=== PATIENT | female | born 1980 | race Two or more races ===

== ENCOUNTER 2018-02-20 12:05 | Inpatient (IN) | payer BC, OTHER ==
[~2018-02-20] VITALS: Ht 165.1 cm; Wt 83.6 kg
[2018-02-20] MEDS ORDERED: ONDANSETRON HCL 4 MG/2 ML VIAL IV ONE (14:15)
[2018-02-20 14:41] LABS: Hematocrit 32.6 % (36.0-46.0); Hemoglobin 10.1 g/dL (12.2-16.2); Mean Corpuscular Hemoglobin 24.5 pg (28.0-32.0); Mean Corpuscular Hgb Conc. 30.9 g/dL (32.0-36.0); Mean Corpuscular Volume 79.2 fL (80.0-100.0); Platelet Count (auto) 220 10^3/uL (140-450); Red Blood Cells 4.11 10^6/uL (4.0-5.20); White Blood Cell 8.6 10^3/uL (4.4-10.8)
[2018-02-20 14:42] LABS: Red Cell Distribution Width 24.3 % (11.8-14.3)
[2018-02-20 14:43] LABS: Band Neutrophils % (manual) 0; Basophils % (manual) 0 (0.0-2.0); Blast Cells 0; Metamyelocytes % 0; Myelocytes % 0; Promyelocytes % 0; Reactive Lymphocytes 0
[2018-02-20] MEDS ORDERED: KETOROLAC TROMETH 30 MG/ML 1ML VIAL IV ONE (14:45)
[2018-02-20 14:53] LABS: Albumin 2.6 g/dL (3.4-5.0); BUN/Creatinine Ratio 14.3; Calcium 8.7 mg/dL (8.5-10.1); Potassium 3.6 mmol/L (3.5-5.1)
[2018-02-20 14:56] LABS: Bilirubin, Total 0.4 mg/dL (0.2-1.0); Total Protein 8.6 g/dL (6.4-8.2)
[2018-02-20 15:29] LABS: Urine Bacteria NONE SEEN /hpf (None Seen); Urine Blood Negative /uL (Negative); Urine Mucus FEW (None Seen); Urine Specific Gravity 1.022 (1.001-1.035); Urine WBC 6 /hpf (0 - 5)
[2018-02-20] MEDS ORDERED: VANCOMYCIN PER PHARMACY 0 MG IV SCH (15:30)
[2018-02-20] MEDS ORDERED: PIPERACILLIN-TAZOB 3.375GM 100 ML IV ONE (15:30)
[2018-02-20] MEDS ORDERED: ENOXAPARIN SOD 80 MG/0.8ML SYRINGE SC ONE (15:45)
[2018-02-20] MEDS ORDERED: cloNIDine HCL 0.1 MG TAB PO PRN (15:45)
[2018-02-20] MEDS ORDERED: TEMAZEPAM 15 MG CAP PO PRN (15:45)
[2018-02-20] MEDS ORDERED: NITROGLYCERIN 0.4 MG SL TAB SL PRN (15:45)
[2018-02-20] MEDS ORDERED: DOCUSATE SOD 100 MG CAP PO PRN (15:45)
[2018-02-20] MEDS ORDERED: ACETAMINOPHEN 325 MG TAB PO PRN (15:45)
[2018-02-20 16:01] LABS: INR 1.47 (0.9-1.15); Prothrombin Time 15.4 sec (9.27-12.13)
[2018-02-20] MEDS: SODIUM CHLORIDE 0.9% 1,000 ML IV SCH (16:10)
[2018-02-20 16:44] LABS: Eosinophils % (manual) 3 (0-7); Lymphocytes % (manual) 13 (10.0-50.0); Monocytes % (manual) 5 (0-12)
[2018-02-20] MEDS: VANCOMYCIN 1GM/250ML 250 ML IV SCH (17:06)
[2018-02-20] MEDS: Ensure Enlive Strawberry 8oz Bottle PO SCH (18:00)
[2018-02-20 19:11] LABS: % Iron Saturation 12.8 % (15-50)
[2018-02-20] MEDS: PIPERACILLIN-TAZOB 3.375GM 100 ML IV SCH (21:04)
[2018-02-20 21:18] LABS: Folate (Folic Acid) 11.91 ng/mL (5.38-24)
[2018-02-20] MEDS: HYDROcodone-ACET 5/325MG TAB PO PRN (21:34)
[2018-02-20] MEDS: LORazepam 0.5 MG TAB PO PRN (21:35)
[2018-02-20] MEDS: ENOXAPARIN SOD 80 MG/0.8ML SYRINGE SC SCH (21:35)
[2018-02-20 22:00] VITALS: BP 164/101
[2018-02-21] MEDS: PIPERACILLIN-TAZOB 3.375GM 100 ML IV SCH ×2 (02:39→10:17)
[2018-02-21] MEDS: HYDROcodone-ACET 5/325MG TAB PO PRN ×5 (02:52→18:45)
[2018-02-21 05:00] VITALS: BP 154/83
[2018-02-21] MEDS: VANCOMYCIN 1GM/250ML 250 ML IV SCH (05:10)
[2018-02-21 06:16] LABS: Basophils # (auto) 0 uL; Eosinophils # (auto) 0.2 uL; Eosinophils % (auto) 3.9 % (0.0-7.0); White Blood Cell 6.2 10^3/uL (4.4-10.8)
[2018-02-21 06:18] LABS: Basophils % (auto) 0.7 % (0.0-2.0); Hematocrit 27.2 % (36.0-46.0); Hemoglobin 8.8 g/dL (12.2-16.2); Lymphocytes # (auto) 0.5 uL; Lymphocytes % (auto) 8.6 % (10.0-50.0); Mean Corpuscular Hemoglobin 25.3 pg (28.0-32.0); Mean Corpuscular Hgb Conc. 32.4 g/dL (32.0-36.0); Mean Corpuscular Volume 78.1 fL (80.0-100.0); Monocytes # (auto) 0.5 uL; Neutrophils # (auto) 4.9 uL; Neutrophils % (auto) 78.8 % (37.0-80.0); Nucleated Red Blood Cells % 0.1 %; Platelet Count (auto) 176 10^3/uL (140-450); Red Blood Cells 3.48 10^6/uL (4.0-5.20)
[2018-02-21 06:25] LABS: Red Cell Distribution Width 23.9 % (11.8-14.3)
[2018-02-21 06:39] LABS: Albumin 2.2 g/dL (3.4-5.0); BUN/Creatinine Ratio 12.2; Bilirubin, Total 0.4 mg/dL (0.2-1.0); Calcium 8.2 mg/dL (8.5-10.1); Total Protein 7.2 g/dL (6.4-8.2)
[2018-02-21 06:49] LABS: Potassium 2.9 mmol/L (3.5-5.1)
[2018-02-21] MEDS: Ensure Enlive Strawberry 8oz Bottle PO SCH ×3 (08:00→18:00)
[2018-02-21] MEDS: SODIUM CHLORIDE 0.9% 1,000 ML IV SCH ×2 (08:17→21:07)
[2018-02-21] MEDS: HYDROmorphone HCL 2 MG/ML VL IV PRN ×5 (08:42→19:00)
[2018-02-21 09:00] VITALS: BP 129/87
[2018-02-21] MEDS: MULTIPLE VITAMIN TAB PO SCH (10:18)
[2018-02-21] MEDS: FLUCONAZOLE 100 MG TAB PO SCH (10:18)
[2018-02-21] MEDS: ENOXAPARIN SOD 80 MG/0.8ML SYRINGE SC SCH ×2 (10:18→21:06)
[2018-02-21] MEDS: SODIUM FERR GLUC 62.5MG/5ML 125 MG in SODIUM CHL 0.9% 100 ML IV SCH (12:00)
[2018-02-21 12:55] VITALS: BP 122/79
[2018-02-21] MEDS: KETOROLAC TROMETH 30 MG/ML 1ML VIAL IV PRN ×2 (15:30→21:06)
[2018-02-21 17:00] VITALS: BP 139/96
[2018-02-21] MEDS: ONDANSETRON HCL 4 MG/2 ML VIAL IV PRN (19:00)
[2018-02-21 22:00] VITALS: BP 123/73
[2018-02-22] MEDS: KETOROLAC TROMETH 30 MG/ML 1ML VIAL IV PRN ×3 (02:43→19:45)
[2018-02-22 05:00] VITALS: BP 137/90
[2018-02-22 06:21] LABS: Basophils # (auto) 0 uL; Lymphocytes # (auto) 0.5 uL; Monocytes # (auto) 0.7 uL; Neutrophils # (auto) 5.2 uL; White Blood Cell 6.8 10^3/uL (4.4-10.8)
[2018-02-22 06:25] LABS: Basophils % (auto) 0.5 % (0.0-2.0); Eosinophils # (auto) 0.3 uL; Hematocrit 28.2 % (36.0-46.0); Lymphocytes % (auto) 7.2 % (10.0-50.0); Mean Corpuscular Hemoglobin 25.1 pg (28.0-32.0); Mean Corpuscular Volume 78.6 fL (80.0-100.0); Monocytes % (auto) 10.6 % (0.0-12.0); Neutrophils % (auto) 76.7 % (37.0-80.0); Platelet Count (auto) 202 10^3/uL (140-450); Red Blood Cells 3.59 10^6/uL (4.0-5.20)
[2018-02-22 06:47] LABS: BUN/Creatinine Ratio 8.2; Calcium 8.3 mg/dL (8.5-10.1); Potassium 3.3 mmol/L (3.5-5.1)
[2018-02-22 06:49] LABS: Red Cell Distribution Width 23.9 % (11.8-14.3)
[2018-02-22] MEDS: Ensure Enlive Strawberry 8oz Bottle PO SCH ×3 (08:00→18:00)
[2018-02-22] MEDS: FLUCONAZOLE 100 MG TAB PO SCH (08:29)
[2018-02-22] MEDS: MULTIPLE VITAMIN TAB PO SCH (08:29)
[2018-02-22] MEDS: HYDROcodone-ACET 5/325MG TAB PO PRN ×3 (08:31→21:44)
[2018-02-22] MEDS: ENOXAPARIN SOD 80 MG/0.8ML SYRINGE SC SCH ×2 (08:31→21:44)
[2018-02-22 09:00] VITALS: BP 156/94
[2018-02-22] MEDS ORDERED: POTASSIUM CHL 20 Meq TABLET PO ONE (10:30)
[2018-02-22 13:00] VITALS: BP 136/84
[2018-02-22] MEDS: SODIUM FERR GLUC 62.5MG/5ML 125 MG in SODIUM CHL 0.9% 100 ML IV SCH (14:00)
[2018-02-22 17:00] VITALS: BP 140/91
[2018-02-22] MEDS: SODIUM CHLORIDE 0.9% 1,000 ML IV SCH (17:32)
[2018-02-22] MEDS: LORazepam 0.5 MG TAB PO PRN (21:44)
[2018-02-22 21:56] VITALS: BP 130/84
[2018-02-23 04:45] VITALS: BP 152/91
[2018-02-23] MEDS: HYDROcodone-ACET 5/325MG TAB PO PRN ×2 (06:14→16:43)
[2018-02-23] MEDS: LORazepam 0.5 MG TAB PO PRN ×2 (06:14→18:53)
[2018-02-23 07:54] VITALS: BP 144/89
[2018-02-23] MEDS: Ensure Enlive Strawberry 8oz Bottle PO SCH ×3 (08:00→18:00)
[2018-02-23] MEDS: ENOXAPARIN SOD 80 MG/0.8ML SYRINGE SC SCH ×2 (09:58→21:22)
[2018-02-23] MEDS: KETOROLAC TROMETH 30 MG/ML 1ML VIAL IV PRN ×3 (09:58→21:22)
[2018-02-23] MEDS: MULTIPLE VITAMIN TAB PO SCH (09:58)
[2018-02-23] MEDS: FLUCONAZOLE 100 MG TAB PO SCH (09:58)
[2018-02-23] MEDS: SODIUM CHLORIDE 0.9% 1,000 ML IV SCH (10:03)
[2018-02-23] MEDS: SODIUM FERR GLUC 62.5MG/5ML 125 MG in SODIUM CHL 0.9% 100 ML IV SCH (12:28)
[2018-02-23 12:45] VITALS: BP 147/89
[2018-02-23] MEDS ORDERED: POTASSIUM CHL 20 Meq TABLET PO ONE (13:45)
[2018-02-23] MEDS ORDERED: CEFT1INJ33 IV (15:10)
[2018-02-23] MEDS ORDERED: METR500T PO (15:10)
[2018-02-23] MEDS ORDERED: FLUC200T35 PO (15:10)
[2018-02-23] MEDS: SIMETHICONE 80 MG CHEWABLE TABLET PO PRN ×2 (16:43→21:22)
[2018-02-23 17:29] VITALS: BP 140/87
[2018-02-23] MEDS: ONDANSETRON HCL 4 MG/2 ML VIAL IV PRN (18:53)
[2018-02-23] MEDS: APIXABAN 5 MG TAB PO SCH (21:21)
[2018-02-23 22:00] VITALS: BP 155/90
[2018-02-24] MEDS: SODIUM CHLORIDE 0.9% 1,000 ML IV SCH (03:11)
[2018-02-24 05:00] VITALS: BP 157/96
[2018-02-24] MEDS: Ensure Enlive Strawberry 8oz Bottle PO SCH ×2 (08:00→12:00)
[2018-02-24 09:00] VITALS: BP 158/94
[2018-02-24] MEDS: ENOXAPARIN SOD 80 MG/0.8ML SYRINGE SC SCH (10:00)
[2018-02-24] MEDS: APIXABAN 5 MG TAB PO SCH (10:36)
[2018-02-24] MEDS: FLUCONAZOLE 100 MG TAB PO SCH (10:36)
[2018-02-24] MEDS: MULTIPLE VITAMIN TAB PO SCH (10:36)
[2018-02-24] MEDS: SODIUM FERR GLUC 62.5MG/5ML 125 MG in SODIUM CHL 0.9% 100 ML IV SCH (12:00)
[2018-02-24 12:13] VITALS: BP 133/84
[2018-03-01] MEDS ORDERED: HCTZ25T PO (11:03)
[2018-03-01] MEDS ORDERED: LEVO500T21 PO (11:03)
== END 2018-02-24 14:21 | disposition home or self-care (01) | DRG 300 ==
LOC: ER 12:10 → TELE 12:11 → TELE-EAST 19:40
PROVIDERS: ADMIT Internal Medicine; ATTEND Internal Medicine Pulmonary Disease
PROC: 05H933Z Insertion of Infusion Device into Right Brachial Vein, Percutaneous Approach (ICD-10-PCS; principal; 2018-02-20)
DX: I82.B11 Acute embolism and thrombosis of right subclavian vein (principal); E44.0 Moderate protein-calorie malnutrition; N39.0 Urinary tract infection, site not specified; I10 Essential (primary) hypertension; E87.6 Hypokalemia; D63.8 Anemia in other chronic diseases classified elsewhere; I82.A11 Acute embolism and thrombosis of right axillary vein; D50.9 Iron deficiency anemia, unspecified; Z86.718 Personal history of other venous thrombosis and embolism; Z90.710 Acquired absence of both cervix and uterus; Z93.3 Colostomy status; Z88.5 Allergy status to narcotic agent; Z68.30 Body mass index [BMI] 30.0-30.9, adult
CPT/HCPCS: 36415; 80048; 80053; 81001; 81241; 82607; 82746; 83090; 83540; 83550; 83605; 85007; 85025; 85027; 85302; 85305; 85306; 85610; 85613; 85670; 85705; 85732; 86147; 87040; 87081; 87086; 87205; 93971; 96361; 96365; 96372; 96375; A6257; J1885; J2405; J2543

== ENCOUNTER 2018-02-27 05:36 | Inpatient (IN) | payer BC ==
[~2018-02-27] VITALS: Ht 162.6 cm; Wt 78.6 kg
[~2018-02-27 05:36] MED LIST: CEFT1INJ33 IV; FLUC200T35 PO; METR500T PO
[2018-02-27] MEDS ORDERED: ACETAMINOPHEN 325 MG TAB PO ONE (06:00)
[2018-02-27] MEDS ORDERED: PROCHLORPERAZINE EDISYLATE 5 MG/ML 2ML VIAL IV ONE (06:45)
[2018-02-27] MEDS ORDERED: HYDROmorphone HCL 2 MG/ML VL IV ONE (06:45)
[2018-02-27] MEDS ORDERED: SODIUM CHLORIDE 0.9% 1,000 ML IV ONE (06:45)
[2018-02-27 08:19] LABS: Basophils # (auto) 0.1 uL; Eosinophils # (auto) 0.1 uL; Hemoglobin 9.8 g/dL (12.2-16.2); Lymphocytes # (auto) 0.9 uL; Monocytes # (auto) 0.7 uL
[2018-02-27 08:21] LABS: Basophils % (auto) 0.8 % (0.0-2.0); Eosinophils % (auto) 1.6 % (0.0-7.0); Hematocrit 30.5 % (36.0-46.0); Lymphocytes % (auto) 11.8 % (10.0-50.0); Mean Corpuscular Hemoglobin 24.9 pg (28.0-32.0); Mean Corpuscular Hgb Conc. 32.2 g/dL (32.0-36.0); Mean Corpuscular Volume 77.3 fL (80.0-100.0); Monocytes % (auto) 9.5 % (0.0-12.0); Neutrophils # (auto) 5.9 uL; Neutrophils % (auto) 76.3 % (37.0-80.0); Nucleated Red Blood Cells % 0.1 %; Platelet Count (auto) 397 10^3/uL (140-450); Red Blood Cells 3.94 10^6/uL (4.0-5.20); White Blood Cell 7.7 10^3/uL (4.4-10.8)
[2018-02-27 08:24] LABS: Red Cell Distribution Width 22.9 % (11.8-14.3)
[2018-02-27 08:26] LABS: Alanine Aminotransferase 23 U/L (13-56); Albumin 2.5 g/dL (3.4-5.0); Alkaline Phosphatase 65 U/L (45-117); Anion Gap 11 (5-15); Aspartate Aminotransferase 26 U/L (15-37); BUN/Creatinine Ratio 7.4; Bilirubin, Total 0.4 mg/dL (0.2-1.0); Blood Urea Nitrogen 5 mg/dL (7-18); Calcium 8.3 mg/dL (8.5-10.1); Carbon Dioxide 26 mmol/L (21-32); Chloride 101 mmol/L (98-107); GFR African American 124 mL/min; GFR Non-African American 102 mL/min; Glucose 93 mg/dL (74-106); Potassium 3.1 mmol/L (3.5-5.1); Sodium 138 mmol/L (136-145); Total Protein 7.8 g/dL (6.4-8.2)
[2018-02-27 08:28] LABS: INR 1.63 (0.9-1.15); Partial Thromboplastin Time 36.4 sec (23.78-33.04)
[2018-02-27 10:12] LABS: Urine Bacteria FEW /hpf (None Seen); Urine Blood TRACE /uL (Negative); Urine Specific Gravity 1.006 (1.001-1.035); Urine WBC 12 /hpf (0 - 5)
[2018-02-27] MEDS ORDERED: cloNIDine HCL 0.1 MG TAB PO ONE (10:15)
[2018-02-27] MEDS ORDERED: DOCUSATE SOD 100 MG CAP PO PRN (12:00)
[2018-02-27] MEDS ORDERED: TEMAZEPAM 15 MG CAP PO PRN (12:00)
[2018-02-27] MEDS ORDERED: POTASSIUM CHLORIDE 8 MEQ TAB PO ONE (12:00)
[2018-02-27] MEDS ORDERED: ACETAMINOPHEN 325 MG TAB PO PRN (12:00)
[2018-02-27] MEDS ORDERED: ONDANSETRON HCL 4 MG/2 ML VIAL IV PRN (12:00)
[2018-02-27] MEDS ORDERED: SUMAtriptan SUCCINATE 25 MG TAB PO PRN (12:00)
[2018-02-27] MEDS ORDERED: NITROGLYCERIN 0.4 MG SL TAB SL PRN (12:00)
[2018-02-27] MEDS ORDERED: HYDROmorphone HCL 2 MG/ML VL IV PRN (12:15)
[2018-02-27] MEDS ORDERED: ENALAPRILAT 1.25 MG/ML-1ML VIAL IV PRN (12:15)
[2018-02-27] MEDS: SODIUM CHLORIDE 0.9% 1,000 ML IV SCH ×3 (12:22→20:20)
[2018-02-27] MEDS: APIXABAN 5 MG TAB PO SCH ×3 (12:22→23:55)
[2018-02-27] MEDS: Ensure Enlive Strawberry 8oz Bottle PO SCH ×2 (12:25→18:00)
[2018-02-27] MEDS ORDERED: ONDANSETRON ODT 4 MG TAB PO ONE ×2 (18:20→18:30)
[2018-02-27] MEDS: cloNIDine HCL 0.1 MG TAB PO PRN (18:21)
[2018-02-27 20:00] VITALS: BP 152/86
[2018-02-27] MEDS: HYDROcodone-ACET 5/325MG TAB PO PRN (21:33)
[2018-02-27 22:00] VITALS: BP 156/87
[2018-02-27] MEDS: FAMOTIDINE 20 MG TAB PO SCH (23:03)
[2018-02-27] MEDS: METOCLOPRAMIDE HCL 10 MG TAB PO SCH (23:03)
[2018-02-27] MEDS: ASCORBIC ACID 500 MG TAB PO SCH (23:04)
[2018-02-28] MEDS: SODIUM CHLORIDE 0.9% 1,000 ML IV SCH ×4 (01:15→13:15)
[2018-02-28] MEDS ORDERED: APIX5TAB OR (02:58)
[2018-02-28] MEDS ORDERED: HYDR-4683 PO (02:59)
[2018-02-28] MEDS ORDERED: LORA-655 PO (03:00)
[2018-02-28 05:00] VITALS: BP 159/97
[2018-02-28] MEDS: METOCLOPRAMIDE HCL 10 MG TAB PO SCH ×3 (06:00→21:04)
[2018-02-28 06:45] LABS: Basophils # (auto) 0 uL; Basophils % (auto) 0.7 % (0.0-2.0); Eosinophils # (auto) 0.2 uL; Hemoglobin 10.3 g/dL (12.2-16.2); Monocytes # (auto) 0.7 uL; Neutrophils # (auto) 3.7 uL; White Blood Cell 5.8 10^3/uL (4.4-10.8)
[2018-02-28 06:47] LABS: Eosinophils % (auto) 3.2 % (0.0-7.0); Hematocrit 32.2 % (36.0-46.0); Lymphocytes # (auto) 1.3 uL; Lymphocytes % (auto) 21.9 % (10.0-50.0); Mean Corpuscular Hemoglobin 25.1 pg (28.0-32.0); Mean Corpuscular Hgb Conc. 31.9 g/dL (32.0-36.0); Mean Corpuscular Volume 78.7 fL (80.0-100.0); Monocytes % (auto) 11.3 % (0.0-12.0); Neutrophils % (auto) 62.9 % (37.0-80.0); Platelet Count (auto) 395 10^3/uL (140-450)
[2018-02-28 07:17] LABS: Albumin 2.4 g/dL (3.4-5.0); BUN/Creatinine Ratio 9.7; Bilirubin, Total 0.4 mg/dL (0.2-1.0); Calcium 8.3 mg/dL (8.5-10.1); Potassium 3.2 mmol/L (3.5-5.1); Total Protein 7.4 g/dL (6.4-8.2)
[2018-02-28 08:00] VITALS: BP_SYST 144; BP_SYST 152; BP_DIAS 82; BP_DIAS 92
[2018-02-28] MEDS: Ensure Enlive Strawberry 8oz Bottle PO SCH ×3 (08:00→18:00)
[2018-02-28] MEDS: APIXABAN 5 MG TAB PO SCH ×3 (09:03→21:04)
[2018-02-28] MEDS: ASCORBIC ACID 500 MG TAB PO SCH ×2 (09:03→21:04)
[2018-02-28] MEDS: MULTIPLE VITAMIN TAB PO SCH (09:03)
[2018-02-28] MEDS: ZINC SULFATE 220mg CAP or TAB PO SCH (09:03)
[2018-02-28] MEDS: HYDROcodone-ACET 5/325MG TAB PO PRN ×3 (09:03→21:15)
[2018-02-28] MEDS: FAMOTIDINE 20 MG TAB PO SCH ×2 (09:04→21:04)
[2018-02-28] MEDS: DEXAMETHASONE INJECTION 10 MG in D5W 5% 50 ML IV SCH (09:04)
[2018-02-28 12:00] VITALS: BP 152/94
[2018-02-28] MEDS ORDERED: LORazepam 2MG/ML-1ML VIAL IV ONE (13:00)
[2018-02-28] MEDS ORDERED: POTASSIUM CHL 20 Meq TABLET PO ONE (13:15)
[2018-02-28 16:00] VITALS: BP 154/77
[2018-02-28 22:00] VITALS: BP 157/101
[2018-03-01 05:00] VITALS: BP 165/100
[2018-03-01] MEDS: SODIUM CHLORIDE 0.9% 1,000 ML IV SCH (05:55)
[2018-03-01] MEDS: METOCLOPRAMIDE HCL 10 MG TAB PO SCH ×2 (06:01→13:27)
[2018-03-01] MEDS: cloNIDine HCL 0.1 MG TAB PO PRN ×2 (06:02→08:39)
[2018-03-01 07:28] LABS: Potassium 4.3 mmol/L (3.5-5.1)
[2018-03-01 07:33] LABS: Magnesium 1.4 mg/dL (1.6-2.6)
[2018-03-01 07:35] LABS: Hemoglobin 10.9 g/dL (12.2-16.2)
[2018-03-01 07:38] LABS: Hematocrit 34.4 % (36.0-46.0)
[2018-03-01 08:00] VITALS: BP 165/100
[2018-03-01] MEDS: Ensure Enlive Strawberry 8oz Bottle PO SCH ×2 (08:00→12:00)
[2018-03-01] MEDS: DEXAMETHASONE INJECTION 10 MG in D5W 5% 50 ML IV SCH (08:39)
[2018-03-01] MEDS: ZINC SULFATE 220mg CAP or TAB PO SCH (08:40)
[2018-03-01] MEDS: APIXABAN 5 MG TAB PO SCH (08:40)
[2018-03-01] MEDS: FAMOTIDINE 20 MG TAB PO SCH (08:40)
[2018-03-01] MEDS: MULTIPLE VITAMIN TAB PO SCH (08:40)
[2018-03-01] MEDS: ASCORBIC ACID 500 MG TAB PO SCH (08:40)
[2018-03-01] MEDS: HYDROcodone-ACET 5/325MG TAB PO PRN (08:48)
[2018-03-01 09:00] VITALS: BP 115/69
[2018-03-01] MEDS ORDERED: amLODIPine BESYLATE 5 MG TAB PO ONE (09:45)
[2018-03-01] MEDS ORDERED: HCTZ 25 MG TAB PO ONE (09:45)
[2018-03-01] MEDS: MAGNESIUM SULFATE 1GM/100ML 100 ML IV SCH ×2 (11:00→11:23)
[2018-03-01] MEDS ORDERED: LEVO500T21 PO (11:03)
[2018-03-01] MEDS ORDERED: HCTZ25T PO (11:03)
[2018-03-01] MEDS ORDERED: MAGNESIUM OXIDE 400 MG TAB PO ONE (12:30)
[2018-03-01 13:00] VITALS: BP 160/85
[2018-03-01 13:29] VITALS: BP 160/85
== END 2018-03-01 14:05 | disposition home or self-care (01) | DRG 103 ==
LOC: ER 05:39 → TELE 05:40 → TELE-EAST 19:35
PROVIDERS: ADMIT Internal Medicine; ATTEND Internal Medicine
DX: G43.101 Migraine with aura, not intractable, with status migrainosus (principal); I82.621 Acute embolism and thrombosis of deep veins of right upper extremity; N39.0 Urinary tract infection, site not specified; B96.20 Unspecified Escherichia coli [E. coli] as the cause of diseases classified elsewhere; E86.0 Dehydration; E87.6 Hypokalemia; F17.200 Nicotine dependence, unspecified, uncomplicated; H53.2 Diplopia; I11.9 Hypertensive heart disease without heart failure; Z53.20 Procedure and treatment not carried out because of patient's decision for unspecified reasons; Z79.899 Other long term (current) drug therapy; Z86.718 Personal history of other venous thrombosis and embolism; Z90.710 Acquired absence of both cervix and uterus; Z79.01 Long term (current) use of anticoagulants; Z93.3 Colostomy status; Z88.5 Allergy status to narcotic agent; Z90.49 Acquired absence of other specified parts of digestive tract
CPT/HCPCS: 36415; 70450; 80053; 81001; 83735; 84132; 84484; 85014; 85018; 85025; 85610; 85730; 87081; 87086; 87088; 87186; 93005; 94761; 96361; 96374; 96375; J1100; J7060; Q0162